=== PATIENT | female | born 1955 | race Caucasian/White ===

== ENCOUNTER 2019-02-09 23:00 | Emergency (ER) | payer OTHER ==
[~2019-02-09] VITALS: Ht 165.1 cm; Wt 59.0 kg
[~2019-02-09 23:00] MED LIST: AMBIEN 10 MG TA10 MG; AMBIEN 10 MG TA10 MG PO; ASPIR 8181 MG PO; ATIVAN1 MG PO; AVELOX 400 MG400 M1 PO; BENADRYL25 MG PO; BISACODYL SUPP10 MG RE; CALCITRATE200 MG PO; CAMPRAL 333 MG333 M1 PO; CARAFATE 1 GM TA1 G1 PO; CEFUROXIME500 MG PO; CIPRO500 MG PO; CIPROFLOXACIN500 M1 PO; COLACE100 MG PO; CYCLOBENZAPRINE; CYMBALTA30 MG PO; CYMBALTA60 MG PO; DESYREL100 MG PO; DESYREL50 MG; DIOVAN; DIOVAN HCT 80-1 EACH PO; DIOVAN PO; DOXYCYCLINE 10100 MG PO; FAMOTIDINE PO; FLEXERIL; FLEXERIL PO; FOLIC ACID1 MG PO; HYDROCODONE-AP1 EAC6 PO; IBUPROFEN; IBUPROFEN 600600 M1 PO; IBUPROFEN200 M2; INDERAL PO; K-DUR 20 MEQ T20 MEQ PO; KETOCONAZOLE60 GM TP; KLOR-CON 10 ER10 MEQ PO; KLOR-CON 1010 MEQ; LEVOTHROID PO; LEXAPRO 10 MG T10 MG PO; LOTRIMIN30 GM TP; MAGOX 400400 MG PO; MIRALAX17 GM PO; MULTIPLE VITAM1 EAC3 PO; MULTIVITAMINS PO; NERVE TONIC; NEXIUM PO; NEXIUM40 MG PO; NOHOMEMEDICATIONS; NORCO 5-325 TA1 EACH PO; OXYCODONE HCL5 M1; OXYIR5 MG PO; PANTOPRAZOLE SO40 M1 PO; PERCOGESIC; PROPRANOLOL 1010 M1; PROPRANOLOL 1010 M1 PO; PROTONIX40 M1 PO; REVIA 50 MG TAB50 MG; SPIRONOLACTONE25 M1 PO; TRAMADOL 50 MG50 MG PO; TRAZODONE 50 MG50 MG OR; TRINATE TABLET1 TAB PO; TUMS PO; TYLENOL325 MG PO; VICODIN 5-5001 EACH PO; VITAMIN B-1100 M1 PO; WELLBUTRIN XL150 M1 PO; WELLBUTRIN XL150 M2 PO; XANAX 0.5 MG0.5 MG PO; ZOFRAN ODT4 MG PO; ZOFRAN4 MG PO
[2019-02-09 23:39] LABS: ABSOLUTE EOSINOPHILS 0.1 thou/uL (0.0-0.7); ABSOLUTE LYMPHOCYTES 1.9 thou/uL (0.8-5.3); ABSOLUTE MONOCYTES 0.2 thou/uL (0.0-1.2); ABSOLUTE NEUTROPHILS 0.9 thou/uL (1.6-8.1); BASOPHILS 0.5 %; EOSINOPHILS 2.2 %; HEMOGLOBIN 13.1 gm/dL (12.0-15.0); LYMPHOCYTES 61.2 %; MCHC 33.5 g/dL (28.0-37.0); MCV 101.6 fL (80.0-100.0); MONOCYTES 6.5 %; MPV 7.3 fl. (7.2-11.1); NUCLEATED RBCS 0 /100WBC; PLATELET COUNT* 64 thou/uL (150-400); POLYS 29.6 %; RBC 3.84 mil/uL (4.20-5.00); RDW-CV 17.3 % (10.5-14.5); WBC 3.2 thou/uL (4.0-11.0)
[2019-02-09 23:49] LABS: ANION GAP 12 mmol/L (7-16); BUN 8 mg/dL (7-18); CALCIUM 8.7 mg/dL (8.5-10.1); CHLORIDE 105 mmol/L (98-107); CO2 27 mmol/L (21-32); CREATININE 0.9 mg/dL (0.6-1.3); GLUCOSE 92 mg/dL (70-99); POTASSIUM 4.3 mmol/L (3.5-5.1); SODIUM 144 mmol/L (136-145)
[2019-02-09 23:50] LABS: INR 1.1; PROTIME 11.6 Seconds (9.20-11.50)
[2019-02-10] LABS: ALBUMIN 3.7 g/dL (3.4-5.0); ALKALINE PHOSPHATASE 106 U/L (46-116); LIPASE 117 U/L (73-393); NT-PRO BRAIN NAT PEPTIDE 31 pg/mL (<300); SGOT 53 U/L (15-37); SGPT 27 U/L (30-65); TOTAL BILIRUBIN 0.6 mg/dL (<0.1-1.0); TOTAL PROTEIN 8.6 g/dL (6.4-8.2); TROPONIN-I LEVEL <0.06 ng/mL (<0.06)
[2019-02-10 00:16] LABS: URINE BILIRUBIN NEGATIVE (Negative); URINE BLOOD NEGATIVE (Negative); URINE CLARITY CLEAR; URINE COLOR YELLOW; URINE GLUCOSE-RANDOM NEGATIVE (Negative); URINE KETONES NEGATIVE (Negative); URINE LEUKOCYTES-REFLEX NEGATIVE (Negative); URINE NITRITE-REFLEX NEGATIVE (Negative); URINE PROTEIN NEGATIVE (Negative); URINE UROBILINOGEN 0.2 E.U./dl (0.2-1.0)
[2019-02-10 00:23] LABS: AMP/METHAMP Negative (Negative); BARBITURATES Negative (Negative); BENZODIAZEPINES Negative (Negative); COCAINE Negative (Negative); METHADONE Negative (Negative); OPIATES Negative (Negative); PCP Negative (Negative); THC Negative (Negative)
[2019-02-10 01:23] VITALS: BP 154/68
--- NOTE | 2019-02-10 10:29 | EKG ---
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: [place] : 1955 Requested By: Emanuel Coley Order Number: [id number] MD: Adrine Peters Measurements Intervals [place] Rate: 88 P: 34 IA: 145 QRS: -24 QRSD: 99 T: 6 QT: 387 QTc: 469 Interpretive Statements Sinus rhythm Borderline left axis deviation Low voltage, precordial leads Compared to ECG 08/01/2018 14:33:12 Low QRS voltage now present Sinus tachycardia no longer present Electronically Signed On 02-10-2019 10:29:02 CDT by Adrien Peters [email or web address] <ELECTRONICALLY SIGNED> By: Adrien Peters MD, [facility] 02/10/19 1029 [id number] [id number] Adrien Peters MD, [facility] /EPI
== END 2019-02-10 01:24 | disposition home or self-care (01) ==
LOC: M.ERS 23:00
PROVIDERS: Emergency Medicine
DX: F10.129 Alcohol abuse with intoxication, unspecified (principal); I10 Essential (primary) hypertension; F32.9 Major depressive disorder, single episode, unspecified; K21.9 Gastro-esophageal reflux disease without esophagitis; Z90.49 Acquired absence of other specified parts of digestive tract

== ENCOUNTER 2019-04-12 03:50 | Inpatient (IN) | payer OTHER ==
[~2019-04-12] VITALS: Ht 165.1 cm; Wt 81.1 kg
[2019-04-12] VITALS (146 sets, daily range): BP systolic 51–150; BP diastolic 11–125
[2019-04-12 04:22] LABS: ABSOLUTE BASOPHILS 0.1 thou/uL (0.0-0.2); ABSOLUTE MONOCYTES 0.7 thou/uL (0.0-1.2); ABSOLUTE NEUTROPHILS 6.3 thou/uL (1.6-8.1); BASOPHILS 0.7 %; EOSINOPHILS 0.2 %; HEMATOCRIT 26.7 % (37.0-47.0); HEMOGLOBIN 9.1 gm/dL (12.0-15.0); LYMPHOCYTES 12.7 %; MCH 37.4 pg (26.0-34.0); MCHC 34.2 g/dL (28.0-37.0); MCV 109.2 fL (80.0-100.0); MONOCYTES 9.1 %; MPV 12.4 fl. (7.2-11.1); NUCLEATED RBCS 1 /100WBC; PLATELET COUNT* 66 thou/uL (150-400); POLYS 77.3 %; RBC 2.45 mil/uL (4.20-5.00); RDW-CV 20.5 % (10.5-14.5); WBC 8.1 thou/uL (4.0-11.0)
[2019-04-12 05:34] LABS: URINE BLOOD 2+ (Negative); URINE CLARITY SL CLOUDY; URINE COLOR DARK YELLOW; URINE GLUCOSE-RANDOM TRACE (Negative); URINE KETONES TRACE (Negative); URINE PROTEIN 2+ (Negative); URINE SPECIFIC GRAVITY 1.015 (1.005-1.030)
[2019-04-12 05:38] LABS: ICTOTEST (BILI CONFIRMATORY) Positive (Negative); URINE BILIRUBIN 3+ (Negative); URINE LEUKOCYTES-REFLEX 3+ (Negative); URINE NITRITE-REFLEX POSITIVE (Negative)
[2019-04-12 05:47] LABS: SQUAMOUS 0-3 Few /LPF (0-3)
[2019-04-12 05:48] LABS: BACTERIA-REFLEX >30 Many /HPF (None Seen); CRYSTALS None Seen /LPF (None Seen); FINE GRANULAR CASTS 0-3 Few /LPF (None Seen); MUCUS 4-6 Moderate strn/LPF (None Seen); URINE RBC 3-10 Few /HPF (0-2)
[2019-04-12 05:51] LABS: TOTAL BILIRUBIN 24.3 mg/dL (<0.1-1.0)
[2019-04-12 05:55] LABS: APTT 47.4 Seconds (25.0-31.3); INR 3.3; PROTIME 32.2 Seconds (9.20-11.50)
[2019-04-12 06:06] LABS: ALBUMIN 2.2 g/dL (3.4-5.0); CALCIUM 9.8 mg/dL (8.5-10.1); CREATININE 2.5 mg/dL (0.6-1.3); TOTAL PROTEIN 5.6 g/dL (6.4-8.2)
[2019-04-12 06:11] LABS: POTASSIUM 3.7 mmol/L (3.5-5.1)
[2019-04-12 06:50] LABS: ANISOCYTOSIS 2+; MACROCYTES 2+; PLATELET ESTIMATE DECREASED; POIKILOCYTOSIS 1+
[2019-04-12 08:47] LABS: BE -3.1 mmol/L (-2 to +3); PCO2 29.1 mmHg (35.0-45.0); pH 7.463 (7.340-7.450)
[2019-04-12 12:36] LABS: HEMATOCRIT 23.4 % (37.0-47.0); HEMOGLOBIN 7.9 gm/dL (12.0-15.0); MCH 35.9 pg (26.0-34.0); MCHC 33.6 g/dL (28.0-37.0); MCV 106.7 fL (80.0-100.0); MPV 12.1 fl. (7.2-11.1); RBC 2.19 mil/uL (4.20-5.00); RDW-CV 24.5 % (10.5-14.5); WBC 9.7 thou/uL (4.0-11.0)
[2019-04-12 12:43] LABS: CREATININE 2.9 mg/dL (0.6-1.3); POTASSIUM 3.2 mmol/L (3.5-5.1)
[2019-04-12 12:49] LABS: PROTIME 50.9 Seconds (9.20-11.50)
[2019-04-12 12:51] LABS: INR 5.3
[2019-04-12 16:48] LABS: BE -24.8 mmol/L (-2 to +3)
[2019-04-12 16:52] LABS: PCO2 19.8 mmHg (35.0-45.0); pH 6.975 (7.340-7.450)
--- NOTE | 2019-04-12 17:00 | 2DMMODE ---
[place] [address] 2 D/M-MODE ECHOCARDIOGRAM Name: GISSELL BLANCO Room: [address] IN [facility]#: [id number] Admission: 04/12/19 Attend Phys: John Retana Discharge: Date of : 55 Date of Service: 04/12/19 1700 Report #: [id number] THIS REPORT FOR: //name// APPROVED REPORT Study performed: 04/12/2019 09:35:42 EXAM: Comprehensive 2D, Doppler, and color-flow Echocardiogram Patient Location: In-Patient Room #: 002 Status: routine BSA: 1.62 HR: 104 bpm BP: 94/40 mmHg Rhythm: NSR Other Information Study Quality: Good Indications Elevated Troponin 2D Dimensions IVSd: 13.42 (7-11mm) LVOT Diam: 20.44 (18-24mm) LVDd: 35.27 mm PWd: 9.46 (7-11mm) Ascending Ao: 31.63 (22-36mm) LVDs: 24.26 (25-40mm) Aortic Root: 29.63 mm Volumes Left Atrial Volume (Systole) LA ESV Index: 26.20 mL/m2 Aortic Valve AoV Peak Valdemar.: 2.40 m/s AO Peak Gr.: 23.05 mmHg AO Mean Gr.: 13.59 mmHg AO V2 VTI: 35.32 cm AI [place]: 3.99 m/s2 AI PHT: 237.52 ms Mitral Valve E/A Ratio: 0.79 MV Decel. Time: 180.26 ms MV E Max Valdemar.: 0.77 m/[place] [address] 2 D/M-MODE ECHOCARDIOGRAM Name: GISSELL BLANCO Room: [address] IN [facility]#: [id number] Admission: 04/12/19 Attend Phys: John Retana Discharge: Date of : 55 Date of Service: 04/12/19 1700 Report #: [id number] MV PHT: 52.28 ms MVA (PHT): 4.21 cm2 Pulmonary Valve PV Peak Valdemar.: 1.19 m/s PV Peak Gr.: 5.70 mmHg Tricuspid Valve RAP Estimate: 5.00 mmHg TR Peak Gr.: 27.19 mmHg RVSP: 32.00 mmHg PA Pressure: 32.00 mmHg Left Ventricle The left ventricle is normal size. There is normal LV segmental wall motion. Mild concentric left ventricular hypertrophy. Left ventricular systolic function is hyperdynamic. LVEF is >70%. Grade I - abnormal relaxation pattern. Right Ventricle The right ventricle is normal size. The right ventricular systolic function is normal. Atria The left atrium size is normal. The right atrium size is normal. Aortic Valve Mild aortic valve sclerosis. Mild aortic regurgitation. No hemodynamically significant valvular aortic stenosis. Mitral Valve The mitral valve is normal in structure. Mild mitral regurgitation. No evidence of mitral valve stenosis. Tricuspid Valve The tricuspid valve is normal in structure. Mild tricuspid regurgitation. Mild pulmonary hypertension. Pulmonic Valve The pulmonary valve is normal in structure. There is no pulmonic valvular regurgitation. Great Vessels The aortic root is normal in size. IVC is normal in size and collapses >50% with inspiration[place] [address] 2 D/M-MODE ECHOCARDIOGRAM Name: GISSELL BLANCO Room: [address] IN ..#: [id number] Admission: 04/12/19 Attend Phys: John Retana Discharge: Date of : 55 Date of Service: 04/12/19 1700 Report #: [id number] There is no pericardial effusion. <Conclusion> The left ventricle is normal size. Mild concentric left ventricular hypertrophy. Left ventricular systolic function is hyperdynamic. LVEF is >70%. Grade I - abnormal relaxation pattern. The right ventricle is normal size. The left atrium size is normal. Mild aortic valve sclerosis. Mild aortic regurgitation. No hemodynamically significant valvular aortic stenosis. The mitral valve is normal in structure. Mild mitral regurgitation. The tricuspid valve is normal in structure. Mild tricuspid regurgitation. Mild pulmonary hypertension. IVC is normal in size and collapses >50% with inspiration. There is no pericardial effusion. There is normal LV segmental wall motion. <ELECTRONICALLY SIGNED> By: Yared Muñoz MD, FACC 04/12/191699 99 99 Yared Muñoz MD, FACC /INF
[2019-04-12 17:03] LABS: MCH 35.5 pg (26.0-34.0); MCHC 31.4 g/dL (28.0-37.0); MPV 8.9 fl. (7.2-11.1); RBC 1.36 mil/uL (4.20-5.00); RDW-CV 26.9 % (10.5-14.5); WBC 12.1 thou/uL (4.0-11.0)
[2019-04-12 17:06] LABS: HEMATOCRIT 15.3 % (37.0-47.0); HEMOGLOBIN 4.8 gm/dL (12.0-15.0); MCV 112.9 fL (80.0-100.0)
[2019-04-12 17:10] LABS: ANION GAP 39 mmol/L (7-16); BUN 44 mg/dL (7-18); CALCIUM 7.3 mg/dL (8.5-10.1); CHLORIDE 93 mmol/L (98-107); CREATININE 2.8 mg/dL (0.6-1.3); GLUCOSE 164 mg/dL (70-99); POTASSIUM 3.3 mmol/L (3.5-5.1); SODIUM 137 mmol/L (136-145)
[2019-04-12 17:11] LABS: CO2 < 5 mmol/L (21-32)
[2019-04-12 17:26] LABS: PROTIME 38.7 Seconds (9.20-11.50)
[2019-04-12 17:29] LABS: APTT 136.1 Seconds (25.0-31.3)
--- NOTE | 2019-04-12 18:03 | EKG ---
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[place] : 1955 Requested By: Deborah Bull Order Number: [id number] César MD: Adrien Peters Measurements Intervals [place] Rate: 110 P: 15 ID: 135 QRS: -27 QRSD: 92 T: 2 QT: 360 QTc: 488 Interpretive Statements Sinus tachycardia Borderline left axis deviation Abnormal R-wave progression, late transition Borderline repolarization abnormality Borderline prolonged QT interval Compared to ECG 02/09/2019 23:46:41 ST (T wave) deviation now present Sinus rhythm no longer present Electronically Signed On 04-12-2019 18:03:43 CDT by Adrien Peters [email or web address] <ELECTRONICALLY SIGNED> By: Adrien Peters MD, FAC 04/12/19 1803 2 2 Adrien Peters MD, FAC /EPI
[2019-04-12 20:03] LABS: HEMATOCRIT 22.5 % (37.0-47.0); MCH 33.7 pg (26.0-34.0); RBC 2.19 mil/uL (4.20-5.00); RDW-CV 22.9 % (10.5-14.5); WBC 15.1 thou/uL (4.0-11.0)
[2019-04-12 20:06] LABS: HEMOGLOBIN 7.4 gm/dL (12.0-15.0); MCV 102.4 fL (80.0-100.0)
[2019-04-12 20:13] LABS: CALCIUM 7.5 mg/dL (8.5-10.1); CREATININE 2.8 mg/dL (0.6-1.3); POTASSIUM 3.2 mmol/L (3.5-5.1)
[2019-04-12 23:18] LABS: BE -19.8 mmol/L (-2 to +3)
[2019-04-12 23:23] LABS: PCO2 < 17.0 mmHg (35.0-45.0); pH 7.226 (7.340-7.450)
[2019-04-12 23:54] LABS: PROTIME 17.8 Seconds (9.20-11.50)
[2019-04-13] VITALS (281 sets, daily range): BP systolic 63–185; BP diastolic 26–108
[2019-04-13 00:03] LABS: APTT 44.6 Seconds (25.0-31.3); INR 1.8
[2019-04-13 01:38] LABS: HEMATOCRIT 21.6 % (37.0-47.0); HEMOGLOBIN 7.5 gm/dL (12.0-15.0); MCH 33.7 pg (26.0-34.0); MCHC 34.7 g/dL (28.0-37.0); MPV 10.2 fl. (7.2-11.1); RBC 2.22 mil/uL (4.20-5.00); RDW-CV 18.9 % (10.5-14.5); WBC 12.8 thou/uL (4.0-11.0)
[2019-04-13 01:39] LABS: MCV 97.1 fL (80.0-100.0)
[2019-04-13 01:51] LABS: ALBUMIN 2.1 g/dL (3.4-5.0); CALCIUM 6.7 mg/dL (8.5-10.1); CREATININE 2.7 mg/dL (0.6-1.3); MAGNESIUM 1.6 mg/dL (1.8-2.4); TOTAL BILIRUBIN 15.9 mg/dL (<0.1-1.0)
[2019-04-13 02:01] LABS: TROPONIN-I LEVEL 0.79 ng/mL (<0.06)
[2019-04-13 02:15] LABS: TOTAL PROTEIN 4.5 g/dL (6.4-8.2)
[2019-04-13 04:28] LABS: RBC 1.93 mil/uL (4.20-5.00)
[2019-04-13 04:34] LABS: MCH 34.2 pg (26.0-34.0); MCHC 35.8 g/dL (28.0-37.0); MCV 95.4 fL (80.0-100.0); MPV 10.9 fl. (7.2-11.1); RDW-CV 17.8 % (10.5-14.5); WBC 12.4 thou/uL (4.0-11.0)
[2019-04-13 04:42] LABS: HEMATOCRIT 18.4 % (37.0-47.0); HEMOGLOBIN 6.6 gm/dL (12.0-15.0)
[2019-04-13 05:26] LABS: CALCIUM 6.4 mg/dL (8.5-10.1); CREATININE 2.7 mg/dL (0.6-1.3)
[2019-04-13 05:31] LABS: POTASSIUM 2.8 mmol/L (3.5-5.1)
[2019-04-13 05:42] LABS: BE -10.4 mmol/L (-2 to +3); PCO2 20.7 mmHg (35.0-45.0); pH 7.424 (7.340-7.450)
[2019-04-13 05:48] LABS: PO2 237.7 mmHg (75.0-100.0)
[2019-04-13 05:53] LABS: PROTIME 20.1 Seconds (9.20-11.50)
[2019-04-13 05:58] LABS: APTT 43.4 Seconds (25.0-31.3); PROTIME 20.1 Seconds (9.20-11.50)
[2019-04-13 07:00] LABS: HEMOGLOBIN 7.3 gm/dL (12.0-15.0)
[2019-04-13 07:01] LABS: HEMATOCRIT 20.4 % (37.0-47.0)
[2019-04-13 07:48] LABS: MCH 33.2 pg (26.0-34.0); MCV 92.3 fL (80.0-100.0); MPV 10.3 fl. (7.2-11.1); RBC 2.03 mil/uL (4.20-5.00); RDW-CV 15.5 % (10.5-14.5); WBC 11.8 thou/uL (4.0-11.0)
[2019-04-13 07:53] LABS: HEMATOCRIT 18.8 % (37.0-47.0); HEMOGLOBIN 6.8 gm/dL (12.0-15.0)
[2019-04-13 07:55] LABS: CALCIUM 6.5 mg/dL (8.5-10.1); CREATININE 2.7 mg/dL (0.6-1.3); POTASSIUM 2.8 mmol/L (3.5-5.1)
[2019-04-13 08:26] LABS: INR > 18.0
[2019-04-13 08:27] LABS: APTT 60.3 Seconds (25.0-31.3)
[2019-04-13 08:28] LABS: PROTIME > 210.1 Seconds (9.20-11.50)
[2019-04-13 11:33] LABS: PROTIME 16.4 Seconds (9.20-11.50)
[2019-04-13 11:34] LABS: INR 1.6
[2019-04-13 12:40] LABS: PO2 > 488.8 mmHg (75.0-100.0)
[2019-04-13 15:28] LABS: MPV 9.5 fl. (7.2-11.1); RBC 1.93 mil/uL (4.20-5.00); RDW-CV 14.6 % (10.5-14.5)
[2019-04-13 15:29] LABS: MCH 32.9 pg (26.0-34.0); MCHC 35.9 g/dL (28.0-37.0); MCV 91.5 fL (80.0-100.0); WBC 5.6 thou/uL (4.0-11.0)
[2019-04-13 15:32] LABS: HEMATOCRIT 17.6 % (37.0-47.0); HEMOGLOBIN 6.3 gm/dL (12.0-15.0)
[2019-04-13 15:41] LABS: INR 2.1; PROTIME 21.3 Seconds (9.20-11.50)
[2019-04-13 15:45] LABS: CALCIUM 6.1 mg/dL (8.5-10.1); CREATININE 2.4 mg/dL (0.6-1.3)
[2019-04-13 15:52] LABS: APTT 40.3 Seconds (25.0-31.3)
[2019-04-13 15:53] LABS: POTASSIUM 2.9 mmol/L (3.5-5.1)
--- NOTE | 2019-04-13 16:33 | CON ---
[facility] [address] [place] [address] CONSULTATION Name: GISSELL BLANCO Room: [address] IN .R.#: [id number] Admission: 04/12/19 Attend Phys: Morro Spencer Discharge: Date of : 55 Report #: [id number] THIS REPORT FOR: //name// CC: Xiomara Retana REQUESTING PHYSICIAN: Dr. Das. REASON FOR CONSULTATION: Respiratory failure, multisystem organ failure, on ventilator. DISCUSSION: The patient is a 63-year-old woman who has a history of significant liver disease. She presented to the Emergency Department due to increasing weakness and had some falls at home. She was noted to be markedly jaundiced. Marked coagulopathy was noted and she had a profound lactic acidosis. Noted to be in renal failure. She had acidosis noted on her blood gases as well and was requiring pressor support. There was evidence of marked GI bleeding. Was given blood products as well as FFP and platelets given her abnormalities noted. She deteriorated further and was subsequently intubated yesterday. Overnight, she has remained critically ill. She is on multiple pressors. Has received blood products. She continues to have obvious blood coming from her gastric tube. GI has seen her. Given all of her issues and condition, she was not a candidate for endoscopy. Unknown her from prior hospital stays and being involved in her care, in fact, had recommended that she be a DNR and consider comfort care. Our group has seen her previously. She was hospitalized here in July of this year, also with respiratory failure requiring intubation. At that time, primarily had a metabolic encephalopathy in part related to her liver disease. Was successfully extubated. PAST MEDICAL HISTORY: She has a history of cirrhosis and end-stage liver disease. Has a history of depression, GERD, hypertension, appendectomy, prior tubal ligation, prior foot fracture, esophagitis, chronic thrombocytopenia. SOCIAL HISTORY: She is . I was told her , he has Alzheimer's disease. FAMILY HISTORY: Per old records, she was adopted, unable to obtain from the patient. REVIEW OF SYSTEMS: Unable to obtain from the patient given her condition. PHYSICAL EXAMINATION: GENERAL APPEARANCE: A woman who looks much older than stated age. She is markedly icteric. Intubated, has an oral gastric tube in place. Draining reddish fluid. She has central line in place. She is on propofol for sedation. Also, has multiple pressors going. Large ecchymotic [place] [address] CONSULTATION Name: GISSELL BLANCO Room: [address]#: [id number] Admission: 04/12/19 Attend Phys: Morro Spencer Discharge: Date of : 55 Report #: [id number] and anterior neck area. HEENT: Head is otherwise normocephalic. Sclerae are icteric. Pupils are dilated. Mucous membranes do look dry. NECK: No definite JVD is appreciated. HEART: Regular, close to 120 beats per minute. No S3 is appreciated. LUNGS: Sounds are coarse. Few crackles are heard. No subcutaneous emphysema. ABDOMEN: Slightly distended. Liver does not appear enlarged. She has ecchymotic areas noted throughout. SCDs in place. EXTREMITIES: Cool. Pulses are diminished. NEUROLOGIC: She is on propofol. She is unresponsive. LABORATORY AND X-RAY FINDINGS: Most recent blood gas done this morning showed a pH 7.42, pCO2 of 21, pO2 of 238, bicarb 13 with a saturation of 97%. FiO2 was at 70%. Yesterday at time she was intubated, her pH had dropped down to 6.98, pCO2 of 20, pO2 of 489. On her chemistry, her BUN is 39, creatinine of 2.7, potassium down to 2.8 this morning. Bicarb is 16 (improved from less than 5 yesterday), AST over 2900. Total bilirubin on admission was 24.3, now 15.9. Calcium 6.5, ALT 564, total protein 4.5 with an albumin of 2.1, ammonia level 93. Lactic acid reached a high of 54.8 yesterday, 19.2 this morning. White blood cell count 11,800 this morning; hemoglobin 5.8; hematocrit of 18.8; platelets 31,000. It is after having received other blood products. Prealbumin 10.6. Blood cultures and urine cultures are pending. Chest film was reviewed. Endotracheal tubes in good position. Does have some mild patchy infiltrates seen particularly in the bases. Could be early infiltrates, possible aspiration or atelectasis. Echocardiogram shows LVH with grade 1 diastolic dysfunction. Systolic function was actually hyperdynamic. RV was normal. Mild mitral regurgitation. Mild pulmonary hypertension. IMPRESSION: 1. Acute respiratory failure. Intubated to protect airways. Oxygenating adequately. 2. Multisystem organ failure, all related to her end-stage liver disease. With worsening cirrhosis, hepatic dysfunction, now has a worsening hepatic dysfunction, renal failure, marked coagulopathy. She is also having ongoing issues with active gastrointestinal bleeding. 3. Altered level of consciousness. No bleeding noted on her CT head. It is probably all seen primarily encephalopathic. Markedly abnormal ammonia level. 4. Anemia due to blood loss. 5. Thrombocytopenia, probably related to active bleeding as well as her chronic liver disease. 6. History of alcohol abuse. 7. Overall prognosis is extremely poor. Survival not likely. RECOMMENDATIONS: Discussed earlier with other physicians involved with her care. Discussed with nursing. Daughter subsequently was available. In the interim, she has been made a DNR. At this time, [place] [address] CONSULTATION Name: GISSELL BLANCO Room: [address] IN [facility]#: [id number] Admission: 04/12/19 Attend Phys: Morro Spencer Discharge: Date of : 55 Report #: [id number] at trying to transition over to comfort care. However, I did discuss with the daughter that that may be a reasonable option, is not likely as she will survive, it appears that much of the care being delivered at this time is utile and there was virtually no chance for meaningful recovery. <ELECTRONICALLY SIGNED> By: Irma Bunch MD 04/13/19 1633 1247 [id number] Bunch MD /nt
--- NOTE | 2019-04-13 18:36 | CON ---
[address] [address] CONSULTATION Name: GISSELL BLANCO Room: [address] IN [facility]#: [id number] Admission: 04/12/19 Attend Phys: Morro Spencer Discharge: Date of : 55 Report #: [id number] THIS REPORT FOR: //name// CC: Xiomara Redman John Retana DATE OF SERVICE: 04/12/2019 NEPHROLOGY CONSULTATION CONSULTING PHYSICIAN: Dr. Valencia. REASON FOR NEPHROLOGY CONSULTATION: Acute kidney injury. REASON FOR ADMISSION: The patient had altered mental status, poor appetite, vomiting, dysuria. HISTORY OF PRESENT ILLNESS: This is a 63-year-old female who has history of alcohol dependence, has history of hepatic encephalopathy and acute respiratory failure back in July of this year, came in because she was feeling weak for the past one week. She then developed altered mental status and decreased responsiveness in the ER and her blood glucose was low and she improved after she got an amp of D50. She was hypotensive when she came in. She is on Levophed, currently 15 mcg. She reported not eating at least for a week, also vomiting including some blood, she was also having burning on urination. Her labs revealed severe lactic acidosis, hyponatremia, hyperbilirubinemia, acute kidney injury. Creatinine of 2.5. Creatinine was 0.9 back in January. She also has thrombocytopenia, but she has history of chronic thrombocytopenia, likely connected to her chronic alcohol use. She reports that her last alcoholic drink was about 3 weeks ago. She takes about 2 tablets of aspirin a day for generalized pain. No history of kidney problems reported before. She is currently in the ICU getting IV fluids. She is trying to wake up and she is oriented x 3. She lives at home with her . She also has history of GI bleed in the past connected to her alcohol use. ALLERGIES: No known allergies. REVIEW OF SYSTEMS: As mentioned in the history of present illness, otherwise 10-point review of systems done, negative. PAST MEDICAL AND SURGICAL HISTORY: Includes use of alcohol, hypertension, depression, tubal ligation, peritonitis after ruptured appendix in 1975, appendectomy after above, partial colectomy, acid reflux, left foot fracture with screw placement. She had acute respiratory failure, hepatic encephalopathy and this was back in July of this year as a result of alcohol dependence [place] [address] CONSULTATION Name: GISSELL BLANCO Room: [address]#: [id number] Admission: 04/12/19 Attend Phys: Morro Spencer Discharge: Date of : 55 Report #: [id number] CURRENT MEDICATIONS: Include thiamine. FAMILY HISTORY: No history of any kidney disease in the family that the patient reports of. SOCIAL HISTORY: The patient denies using any alcohol recently to me. She reports that her last use of alcohol was about 3 weeks ago. She does not report cigarette use or tobacco use. She does not report illicit drug use. PHYSICAL EXAMINATION: VITAL SIGNS: Blood pressure is 83/35, respiratory rate 25, pulse rate 111, temperature 37.6, pulse ox 94%. She is on room air. GENERAL: She is drowsy, but she is arousable and she is oriented x 3. SKIN: Extremely jaundiced. HEAD: Atraumatic other than she has a big hematoma close to her chin on the right side. EYES: Scleral icterus present. HEAD, EYES, EARS, NOSE, AND THROAT: Mucous membranes are dry and there is evidence of dark clotted blood on her tongue. NECK: There is no JVD. CHEST: Bilaterally clear to auscultation anteriorly. No crackles or wheezing anteriorly. CARDIOVASCULAR: S1, S2 normal. No murmurs. ABDOMEN: Soft, currently nontender. Bowel sounds decreased, nondistended. LOWER EXTREMITIES: There is no lower extremity edema. NEUROLOGICAL FUNCTION: She is drowsy, but she is arousable. She is moving all her extremities and she is oriented x 3 currently. MOOD: Difficult to assess right now. LABORATORY DATA: Her sodium is 128, platelet count is 66. Hemoglobin was 9.1, potassium was 3.7, chloride was 77, bicarb was 34, BUN was 54, creatinine was 2.5. INR was 3.3, anion gap reported 17. Lactic acid was 19. Troponin was 0.08 and other labs are reviewed. IMAGING: Head CT and chest x-ray were reviewed. ASSESSMENT: 1. Acute kidney injury in the setting of severe volume depletion use of NSAIDs at home, vomiting in the setting of GI bleed and hypotension. Baseline creatinine is around 0.9 back in January of this year and creatinine 2.5 at this time. Urinalysis revealed evidence of 3-10 rbc's per high power field, 2+ protein, but she also has a UTI at the current moment so the urine should be repeated once her acute kidney injury improves. Serological workup for hematuria can be sent if her acute kidney injury does not improve with fluids. Currently, she looks very dehydrated. Renal imaging will be done. [address] [address] CONSULTATION Name: GISSELL BLANCO Room: [address] IN [facility]#: [id number] Admission: 04/12/19 Attend Phys: Morro Spencer Discharge: Date of : 55 Report #: [id number] 2. Hyponatremia in the setting of severe volume depletion. 3. Anion gap metabolic acidosis, lactic acidosis, this is in the setting of volume depletion and acute renal insufficiency and dehydration and liver injury respectively. 4. Thrombocytopenia. She has a history of chronic thrombocytopenia, likely related to alcohol use. We will defer to primary for management of that. 5. Gastrointestinal bleed. Again primary is managing that. 6. Anemia, likely in the setting of GI bleed. She also has a history of chronic anemia. 7. Hypovolemic shock. The patient is severely volume depleted. 8. Low tract UTI, she will be getting antibiotics as per primary team. 9. Hyperbilirubinemia. This is likely in the setting of alcohol use and alcoholic hepatitis, her AST is normal and ALT is out of range. PLAN: 1. Continue with IV hydration, normal saline at 150 mL an hour, sodium will need to be followed to make sure it does not go up too quickly. 2. We will check a CPK level because of the urinalysis showing 3+ blood, but 3-10 rbc's per high power field. 2. Try to keep his mean arterial pressure around 65-70. 3. We will check renal imaging and perform renal ultrasound as well. 4. Strict I's and O's. Thank you for this consultation. We will continue to follow along with you. Discussed with the patient's primary team and the patient. <ELECTRONICALLY SIGNED> By: Judith Burgos MD 04/13/19 1836 0907 [id number] Burgos MD /nt
[2019-04-13 19:11] LABS: RBC 1.81 mil/uL (4.20-5.00); WBC 5.5 thou/uL (4.0-11.0)
[2019-04-13 19:13] LABS: MCHC 34.6 g/dL (28.0-37.0); MCV 89.7 fL (80.0-100.0); MPV 9.8 fl. (7.2-11.1); RDW-CV 17.1 % (10.5-14.5)
[2019-04-13 19:20] LABS: HEMATOCRIT 16.2 % (37.0-47.0); HEMOGLOBIN 5.6 gm/dL (12.0-15.0)
[2019-04-13 19:45] LABS: CREATININE 2.5 mg/dL (0.6-1.3); POTASSIUM 3.1 mmol/L (3.5-5.1)
[2019-04-13 19:47] LABS: CALCIUM 5.6 mg/dL (8.5-10.1)
[2019-04-13 19:50] LABS: APTT 43.2 Seconds (25.0-31.3); PROTIME 19.9 Seconds (9.20-11.50)
[2019-04-13 23:25] LABS: MCH 30.5 pg (26.0-34.0); MCHC 34.1 g/dL (28.0-37.0); MCV 89.5 fL (80.0-100.0); MPV 8.5 fl. (7.2-11.1); RBC 2.68 mil/uL (4.20-5.00); RDW-CV 15.3 % (10.5-14.5); WBC 5.8 thou/uL (4.0-11.0)
[2019-04-13 23:33] LABS: CALCIUM 6.2 mg/dL (8.5-10.1); CREATININE 2.4 mg/dL (0.6-1.3); POTASSIUM 3.5 mmol/L (3.5-5.1)
[2019-04-13 23:37] LABS: PROTIME 19.6 Seconds (9.20-11.50)
[2019-04-13 23:40] LABS: HEMOGLOBIN 8.2 gm/dL (12.0-15.0)
[2019-04-14] VITALS (60 sets, daily range): BP systolic 89–125; BP diastolic 39–69
[2019-04-14 03:26] LABS: HEMOGLOBIN 7.7 gm/dL (12.0-15.0); MPV 7.4 fl. (7.2-11.1)
[2019-04-14 03:28] LABS: HEMATOCRIT 22.4 % (37.0-47.0); MCH 30.5 pg (26.0-34.0); MCHC 34.3 g/dL (28.0-37.0); MCV 88.9 fL (80.0-100.0); RBC 2.52 mil/uL (4.20-5.00); RDW-CV 15.6 % (10.5-14.5); WBC 7.8 thou/uL (4.0-11.0)
[2019-04-14 03:38] LABS: ALBUMIN 1.7 g/dL (3.4-5.0); CALCIUM 6.5 mg/dL (8.5-10.1); CREATININE 2.3 mg/dL (0.6-1.3); MAGNESIUM 1.2 mg/dL (1.8-2.4); POTASSIUM 3.8 mmol/L (3.5-5.1); TOTAL PROTEIN 3.3 g/dL (6.4-8.2)
[2019-04-14 04:14] LABS: BE -11.3 mmol/L (-2 to +3); PO2 98.5 mmHg (75.0-100.0); pH 7.421 (7.340-7.450)
[2019-04-14 04:23] LABS: PCO2 18.6 mmHg (35.0-45.0)
[2019-04-14 05:03] LABS: INR 2.2; PROTIME 21.8 Seconds (9.20-11.50)
[2019-04-14 05:04] LABS: APTT 42.7 Seconds (25.0-31.3)
[2019-04-14 07:01] LABS: HEMOGLOBIN 7.8 gm/dL (12.0-15.0)
[2019-04-14 07:03] LABS: CALCIUM 6.4 mg/dL (8.5-10.1); CREATININE 2.3 mg/dL (0.6-1.3); HEMATOCRIT 22.3 % (37.0-47.0); MCH 30.9 pg (26.0-34.0); MCHC 34.9 g/dL (28.0-37.0); MCV 88.6 fL (80.0-100.0); MPV 8.2 fl. (7.2-11.1); POTASSIUM 3.9 mmol/L (3.5-5.1); RBC 2.51 mil/uL (4.20-5.00); RDW-CV 15.3 % (10.5-14.5); WBC 8.2 thou/uL (4.0-11.0)
[2019-04-14 07:06] LABS: APTT 45.7 Seconds (25.0-31.3); INR 2.6; PROTIME 25.3 Seconds (9.20-11.50)
[2019-04-14 11:26] LABS: ALBUMIN 1.8 g/dL (3.4-5.0); DIRECT BILIRUBIN 7.7 mg/dL (<0.1-0.3); TOTAL BILIRUBIN 13.8 mg/dL (<0.1-1.0); TOTAL PROTEIN 3.4 g/dL (6.4-8.2)
[2019-04-14 12:22] LABS: HEMOGLOBIN 7.1 gm/dL (12.0-15.0); MCH 31.1 pg (26.0-34.0); MCHC 35.2 g/dL (28.0-37.0); RBC 2.27 mil/uL (4.20-5.00)
[2019-04-14 12:24] LABS: HEMATOCRIT 20.1 % (37.0-47.0); MCV 88.6 fL (80.0-100.0); RDW-CV 15.9 % (10.5-14.5); WBC 9.4 thou/uL (4.0-11.0)
[2019-04-14 12:27] LABS: CALCIUM 6.8 mg/dL (8.5-10.1); CREATININE 2.2 mg/dL (0.6-1.3); MAGNESIUM 1.6 mg/dL (1.8-2.4); POTASSIUM 3.6 mmol/L (3.5-5.1)
[2019-04-14 12:51] LABS: PROTIME 39.5 Seconds (9.20-11.50)
[2019-04-14 12:52] LABS: INR 4.1
[2019-04-14 12:54] LABS: APTT 85.1 Seconds (25.0-31.3)
[2019-04-14 16:29] LABS: CALCIUM 6.9 mg/dL (8.5-10.1); CREATININE 2.2 mg/dL (0.6-1.3); POTASSIUM 4.1 mmol/L (3.5-5.1)
[2019-04-14 16:31] LABS: HEMATOCRIT 20.1 % (37.0-47.0); MCH 30.8 pg (26.0-34.0); MCHC 34.9 g/dL (28.0-37.0); MCV 88.3 fL (80.0-100.0); MPV 9.6 fl. (7.2-11.1); RBC 2.27 mil/uL (4.20-5.00); RDW-CV 15.8 % (10.5-14.5); WBC 10.1 thou/uL (4.0-11.0)
[2019-04-14 16:32] LABS: INR 2.7; PROTIME 26.6 Seconds (9.20-11.50)
[2019-04-14 16:33] LABS: APTT 52.8 Seconds (25.0-31.3)
[2019-04-14 19:57] LABS: MCH 30.7 pg (26.0-34.0); MCHC 34.7 g/dL (28.0-37.0); MCV 88.4 fL (80.0-100.0); MPV 9.5 fl. (7.2-11.1); RBC 2.14 mil/uL (4.20-5.00); WBC 11.2 thou/uL (4.0-11.0)
[2019-04-14 19:59] LABS: HEMATOCRIT 18.9 % (37.0-47.0); HEMOGLOBIN 6.6 gm/dL (12.0-15.0)
[2019-04-14 20:05] LABS: APTT 56.2 Seconds (25.0-31.3); INR 3.1; PROTIME 30.3 Seconds (9.20-11.50)
[2019-04-14 20:06] LABS: CALCIUM 6.7 mg/dL (8.5-10.1); CREATININE 2.2 mg/dL (0.6-1.3); MAGNESIUM 1.9 mg/dL (1.8-2.4); POTASSIUM 3.4 mmol/L (3.5-5.1)
[2019-04-14 22:56] LABS: HEMATOCRIT 23.3 % (37.0-47.0); HEMOGLOBIN 8.1 gm/dL (12.0-15.0); MCH 30.9 pg (26.0-34.0); MCHC 34.8 g/dL (28.0-37.0); MCV 88.7 fL (80.0-100.0); MPV 9.5 fl. (7.2-11.1); RBC 2.62 mil/uL (4.20-5.00); RDW-CV 15.7 % (10.5-14.5); WBC 11.6 thou/uL (4.0-11.0)
[2019-04-14 23:04] LABS: CALCIUM 7.3 mg/dL (8.5-10.1); CREATININE 2.1 mg/dL (0.6-1.3); POTASSIUM 3.3 mmol/L (3.5-5.1)
[2019-04-14 23:28] LABS: APTT 54.9 Seconds (25.0-31.3); INR 3.2
[2019-04-15] VITALS (29 sets, daily range): BP systolic 89–137; BP diastolic 36–64
[2019-04-15 03:36] LABS: HEMATOCRIT 24.8 % (37.0-47.0); HEMOGLOBIN 8.4 gm/dL (12.0-15.0); MCH 29.8 pg (26.0-34.0); MCHC 33.9 g/dL (28.0-37.0); MCV 87.9 fL (80.0-100.0); MPV 10.1 fl. (7.2-11.1); RBC 2.83 mil/uL (4.20-5.00); WBC 11.3 thou/uL (4.0-11.0)
[2019-04-15 03:55] LABS: ALBUMIN 1.6 g/dL (3.4-5.0); CALCIUM 6.7 mg/dL (8.5-10.1); POTASSIUM 3.3 mmol/L (3.5-5.1); TOTAL BILIRUBIN 15.3 mg/dL (<0.1-1.0); TOTAL PROTEIN 3.1 g/dL (6.4-8.2)
[2019-04-15 03:58] LABS: APTT 64.7 Seconds (25.0-31.3); INR 3.8; PROTIME 36.9 Seconds (9.20-11.50)
[2019-04-15 05:22] LABS: BE -4.5 mmol/L (-2 to +3); PCO2 23.6 mmHg (35.0-45.0); pH 7.488 (7.340-7.450)
[2019-04-15 05:30] LABS: PO2 52.9 mmHg (75.0-100.0)
[2019-04-15 06:52] LABS: HEMOGLOBIN 8.5 gm/dL (12.0-15.0); RBC 2.77 mil/uL (4.20-5.00); RDW-CV 16.1 % (10.5-14.5)
[2019-04-15 06:54] LABS: HEMATOCRIT 24.4 % (37.0-47.0); MCH 30.7 pg (26.0-34.0); MCHC 34.8 g/dL (28.0-37.0); MCV 88.1 fL (80.0-100.0); MPV 9.8 fl. (7.2-11.1); WBC 11.6 thou/uL (4.0-11.0)
[2019-04-15 06:58] LABS: CALCIUM 6.7 mg/dL (8.5-10.1); POTASSIUM 3.1 mmol/L (3.5-5.1)
[2019-04-15 07:07] LABS: APTT 66.2 Seconds (25.0-31.3); INR 4.1; PROTIME 40.2 Seconds (9.20-11.50)
[2019-04-15 11:19] LABS: POTASSIUM 3.5 mmol/L (3.5-5.1)
[2019-04-15 11:24] LABS: APTT 71.6 Seconds (25.0-31.3); INR 4.5; PROTIME 44.1 Seconds (9.20-11.50)
[2019-04-15 11:39] LABS: HEMATOCRIT 24.6 % (37.0-47.0); HEMOGLOBIN 8.6 gm/dL (12.0-15.0); MCH 30.7 pg (26.0-34.0); MCHC 34.8 g/dL (28.0-37.0); MCV 88.4 fL (80.0-100.0); MPV 9.6 fl. (7.2-11.1); RBC 2.78 mil/uL (4.20-5.00); WBC 12.3 thou/uL (4.0-11.0)
--- NOTE | 2019-04-16 14:24 | EEG ---
[address] [address] EEG STUDY REPORT Name: GISSELL BLANCO Room: [address] IN .#: [id number] Admission: 04/12/19 Attend Phys: Morro Spencer Discharge: 04/15/19 Date of : 55 Report #: [id number] THIS REPORT FOR: //name// CC: Xiomara Redman John Retana DATE OF SERVICE: 04/14/2019 This patient is being evaluated for altered mental status. EEG was done by placing the electrode by standard 10-20 system of electrode placement. Both referential and sequential montages were used for recording. The patient's EEG demonstrates very low voltage cortical activity, which is difficult to tell what the background is because it is barely perceptible from the baseline. Photic stimulation is unremarkable. IMPRESSION: This is a severely abnormal EEG, which will be consistent with severe encephalopathy, if clinically correlated. Finding is nonspecific, therefore clinical correlation is recommended. <ELECTRONICALLY SIGNED> By: Santi Vazquez MD 04/16/19 1424 1533 [id number] Vazquez MD /nt
--- NOTE | 2019-04-16 14:24 | CON ---
[facility] [address] [place] [address] CONSULTATION Name: GISSELL BLANCO Room: [address] IN .#: [id number] Admission: 04/12/19 Attend Phys: Morro Spencer Discharge: 04/15/19 Date of : 55 Report #: [id number] THIS REPORT FOR: //name// CC: Xiomara Юлия Retana DATE OF SERVICE: 04/13/2019 HISTORY OF PRESENT ILLNESS: This is a 63-year-old female patient who is unable to provide any history. I talked to the patient's nurse. They have noticed an asymmetrical pupil, and a neurological consultation was requested for that. This patient is critically ill. She has end-stage renal failure. She is having a GI bleed, and she is severely encephalopathic. Her last INR was 2.1, and at one time, it was more than 18. Massive GI bleed was confirmed by today's EGD. She has a poor prognosis, and GI and multiple other consultants' note was reviewed, but the family had made the patient DNR, but they have not made the patient comfort care. REVIEW OF SYSTEMS: Positive for multiple problems. She has liver problem. She has a GI bleed. She has anemia. She has hyperbilirubinemia. She has renal injury. She is on multiple pressors to keep her blood pressure maintained. That was her relevant 14-point review of systems. PAST MEDICAL HISTORY: Positive for multiple problems including especially related to the liver. FAMILY HISTORY: Unremarkable. SOCIAL HISTORY: She has multiple issues. Her daughter tried to talk to her. She was very emotional upset, but did have a short talk with her. PHYSICAL EXAMINATION: Her examination is pretty limited. She is somewhat sedated. She barely opens her eyes. She does not do anything at all. Pupil was somewhat asymmetrical. She has major cardiac and respiratory issues at the moment and in fact has numerous issues with multiple blood abnormalities. IMPRESSION AND PLAN: Severe hepatic encephalopathy with multisystem failure. Her CT scan does not show any hematoma or any bleed. Management is going to be systemic. If the family decides to make her comfort care, I will not do any further neurological testing. If not, we [place] [address] CONSULTATION Name: GISSELL BLANCO Room: [address]#: [id number] Admission: 04/12/19 Attend Phys: Morro Spencer Discharge: 04/15/19 Date of : 55 Report #: [id number] Thank you very much for this referral. <ELECTRONICALLY SIGNED> By: Santi Vazquez MD 04/16/19 1424 [id number] Vazquez MD /nt
--- NOTE | 2019-05-02 23:11 | CON ---
[address] [address] CONSULTATION Name: GISSELL BLANCO Room: [address] IN .R.#: [id number] Admission: 04/12/19 Attend Phys: Morro Spencer Discharge: 04/15/19 Date of : 55 Report #: [id number] THIS REPORT FOR: //name// CC: Xiomara Юлия Retana DO DATE OF SERVICE: 04/12/2019 REFERRING PHYSICIAN: John Retana DO. REASON FOR CONSULTATION: Severe alcoholic liver disease. IMPRESSION: 1. Severe alcoholic hepatitis superimposed on alcoholic cirrhosis (MELD score of 41 and discriminant function score of 120). 2. Acute renal failure. 3. Hypotension. 4. Hepatic encephalopathy. 5. Coagulopathy secondary to #1. 6. Hematemesis with history of esophageal varices. RECOMMENDATIONS: 1. First of all, the patient is in critical condition with chronic liver failure due to chronic alcohol abuse. MELD score is 41, which is extremely high. In ____ high MELD score, the patient will be looking at transplantation, but she is not a transplant candidate due to her continued alcohol abuse. Her high MELD score is also predictive of high mortality as her DF (Maddrey discriminant function.) Her DF is 120 and as such extremely high as well. In the patients with DF greater than 32 were acceptable candidate for steroids, methylprednisolone was given. However, the patient is not a candidate for the same due to her upper GI bleed and probable sepsis. On top of everything else, she is hypotensive requiring pressors for blood pressure. Given these circumstances and her overall condition, her prognosis is very poor. I do not expect her to survive this hospital stay. While we can certainly see how she does over the next 24 hours, I recommended the patient be prepared for eventual demise. 2. We will continue with both octreotide and Protonix for now. 3. At the present time, I have no plans for upper endoscopy as she is too unstable to undergo any type of sedation. In addition, this is not her primary problem. 4. We will check labs later today and if these are worsening, I would recommend comfort care. As ____, the patient has been released from our practice back in 2011 and again in 2015, but due to the severity of her illness, I chose to see her to help with establishing her care and delineating a poor prognosis. I talked with her at the bedside and let him [place] [address] CONSULTATION Name: GISSELL BLANCO Room: [address]#: [id number] Admission: 04/12/19 Attend Phys: Morro Spencer Discharge: 04/15/19 Date of : 55 Report #: [id number] but he has some dementia and no other family members are available. We will continue to follow while in the hospital. HISTORY OF PRESENT ILLNESS: The patient is a 63-year-old white female well known to me with chronic history of alcohol abuse with superimposed problems related to the same, who was admitted to the hospital by ____ after falling at home with evidence of hypotension. She is chronic alcoholic with history of GI bleeding in the past and she lives at home with her . Unfortunately, her has some element of dementia and is not the best of historians with regards to the same. I do not have much in the way of history with regards to the same and the patient is encephalopathic at this time. In reviewing the ER records, states that the patient has not drunk for the last couple of weeks, but she has history of chronic alcohol abuse. HOME MEDICATIONS: At this time are just thiamine. She is supposed to be on pantoprazole and vitamins as well. PAST MEDICAL HISTORY: Remarkable for decompensated liver disease secondary to chronic alcohol abuse with history of ascites, encephalopathy and GI bleeding. She has a history of anxiety and depression. She has had peritonitis after ruptured appendix in 1975, at which time she underwent appendectomy and partial colectomy as well. SOCIAL HISTORY: The patient does not smoke, but drinks daily. PHYSICAL EXAMINATION: GENERAL: Revealed very ill-appearing 63-year-old white female who is currently encephalopathic. She is hypotensive with blood pressure in the 70s and is on pressors. She is deeply jaundiced. CARDIOPULMONARY: Revealed tachycardic rate and rhythm. LUNGS: Clear. ABDOMEN: Soft. I cannot really appreciate an obvious organomegaly or mass. LABORATORY DATA: From admission revealed a white count of 8.1, hemoglobin 9.1, platelet count 56,000, MCV is 109.2 and RDW is 20.5. Her sodium 128, potassium 3.7, chloride 77, bicarbonate 34, her BUN is 54, creatinine 2.2 with a GFR of only 19. Her total bilirubin 24.3, alkaline phosphatase 166, AST 7, ALT 74, albumin is 2.2. Serum alcohol level was negative. Her protime is 32.2 with an INR of 3.3. Her fibrinogen is low at 109. Her lactic acid level in her bloodstream was 14.6. DISCUSSION: At the present time, the patient is critically ill with multisystem organ failure. Her prognosis is very poor. We will follow while she in the [address] [place] [address] CONSULTATION Name: GISSELL BLANCO Room: [address] IN .R.#: [id number] Admission: 04/12/19 Attend Phys: Morro Spencer Discharge: 04/15/19 Date of : 55 Report #: [id number] hospital, but I doubt that she is going to survive this hospital stay. We will continue to follow in the hospital. <ELECTRONICALLY SIGNED> By: Israel Tobar DO 05/02/19 [id number] Tobar DO /nt
== END 2019-04-15 14:55 | DRG 871 ==
LOC: M.ERS 03:50 → M.ICU 06:34 → M.TBA-ER 06:34 → M.ICU 08:23
PROVIDERS: Family Medicine; Internal Medicine; Internal Medicine Critical Care Medicine; Internal Medicine Gastroenterology; Internal Medicine Pulmonary Disease; Personal Emergency Response Attendant; ADMIT Internal Medicine
PROC: 30233R1 Transfusion of Nonautologous Platelets into Peripheral Vein, Percutaneous Approach (ICD-10-PCS; principal; 2019-04-12)
PROC: 30233K1 Transfusion of Nonautologous Frozen Plasma into Peripheral Vein, Percutaneous Approach (ICD-10-PCS; principal; 2019-04-12)
PROC: 30233N1 Transfusion of Nonautologous Red Blood Cells into Peripheral Vein, Percutaneous Approach (ICD-10-PCS; principal; 2019-04-12)
PROC: 03HY32Z Insertion of Monitoring Device into Upper Artery, Percutaneous Approach (ICD-10-PCS; principal; 2019-04-12)
PROC: 5A1945Z Respiratory Ventilation, 24-96 Consecutive Hours (ICD-10-PCS; principal; 2019-04-12)
PROC: 02HV33Z Insertion of Infusion Device into Superior Vena Cava, Percutaneous Approach (ICD-10-PCS; principal; 2019-04-12)
PROC: 0BH17EZ Insertion of Endotracheal Airway into Trachea, Via Natural or Artificial Opening (ICD-10-PCS; principal; 2019-04-12)
PROC: 06L38CZ Occlusion of Esophageal Vein with Extraluminal Device, Via Natural or Artificial Opening Endoscopic (ICD-10-PCS; 2019-04-13)
PROC: 30233M1 Transfusion of Nonautologous Plasma Cryoprecipitate into Peripheral Vein, Percutaneous Approach (ICD-10-PCS; 2019-04-13)
DX: A41.9 Sepsis, unspecified organism (principal); G92 Toxic encephalopathy; K72.00 Acute and subacute hepatic failure without coma; N17.0 Acute kidney failure with tubular necrosis; I85.01 Esophageal varices with bleeding; J96.01 Acute respiratory failure with hypoxia; E43 Unspecified severe protein-calorie malnutrition; I21.4 Non-ST elevation (NSTEMI) myocardial infarction; D68.59 Other primary thrombophilia; N39.0 Urinary tract infection, site not specified; E87.1 Hypo-osmolality and hyponatremia; K76.6 Portal hypertension; K56.7 Ileus, unspecified; F32.9 Major depressive disorder, single episode, unspecified; K21.9 Gastro-esophageal reflux disease without esophagitis; N18.9 Chronic kidney disease, unspecified; D69.6 Thrombocytopenia, unspecified; E86.9 Volume depletion, unspecified; E80.6 Other disorders of bilirubin metabolism; D50.0 Iron deficiency anemia secondary to blood loss (chronic); F10.10 Alcohol abuse, uncomplicated; E86.0 Dehydration; I12.9 Hypertensive chronic kidney disease with stage 1 through stage 4 chronic kidney disease, or unspecified chronic kidney disease; I95.9 Hypotension, unspecified; R73.9 Hyperglycemia, unspecified; K70.10 Alcoholic hepatitis without ascites; K70.30 Alcoholic cirrhosis of liver without ascites; Z66 Do not resuscitate; K31.89 Other diseases of stomach and duodenum; B96.20 Unspecified Escherichia coli [E. coli] as the cause of diseases classified elsewhere; T68.XXXA Hypothermia, initial encounter; Z51.5 Encounter for palliative care; Z90.49 Acquired absence of other specified parts of digestive tract; Z87.81 Personal history of (healed) traumatic fracture; Z79.1 Long term (current) use of non-steroidal anti-inflammatories (NSAID); Z80.1 Family history of malignant neoplasm of trachea, bronchus and lung